=== PATIENT | female | born 1970 | race Caucasian/White ===

== ENCOUNTER → 2016-09-11 11:34 | Outpatient (CLI) | payer BC ==
[2016-09-11 12:24] LABS: HCG SERUM NEGATIVE (NEGATIVE)
== END | disposition home or self-care (01) ==
LOC: D.NM 11:30
PROVIDERS: Internal Medicine Gastroenterology
DX: R13.10 Dysphagia, unspecified (principal); R10.11 Right upper quadrant pain

== ENCOUNTER 2016-10-08 20:34 | Emergency (ER) | payer BC ==
[2016-10-08 22:52] LABS: BASOPHILS 0.2 % (0-2); EOSINOPHILS 0.5 % (0-7); HEMATOCRIT 39.8 % (36.0-48.0); HEMOGLOBIN 13.1 g/dL (12-16); IMMATURE GRANULOCYTES 0.2 % (0-5); LYMPHOCYTES 19.8 % (15-50); MCH 26.7 pg (26.0-34.0); MCHC 32.9 g/dL (31.0-37.0); MCV 81.1 fL (80.0-100.0); MEAN PLATELET VOLUME 10.8 fL (7.4-10.4); MONOCYTES 5.3 % (2-11); PLATELET COUNT 267 10x3/uL (130-400); RBC 4.91 10x6/uL (4.00-5.40); RDW 15.9 % (11.5-14.5); WBC 6.6 10x3/uL (4.8-10.8)
== END 2016-10-09 00:06 | disposition home or self-care (01) ==
LOC: D.ER 20:34
PROVIDERS: Physician Assistant
DX: G89.18 Other acute postprocedural pain (principal); R10.9 Unspecified abdominal pain; I10 Essential (primary) hypertension; E03.9 Hypothyroidism, unspecified

== ENCOUNTER → 2016-11-05 08:34 | Outpatient (CLI) | payer BC ==
[2016-11-05 09:12] LABS: BASOPHILS 0.5 % (0-2); HEMATOCRIT 40.3 % (36.0-48.0); HEMOGLOBIN 13.4 g/dL (12-16); IMMATURE GRANULOCYTES 0.6 % (0-5); LYMPHOCYTES 24.2 % (15-50); MCH 27.2 pg (26.0-34.0); MCHC 33.3 g/dL (31.0-37.0); MCV 81.7 fL (80.0-100.0); MONOCYTES 6.2 % (2-11); NEUTROPHILS 63.5 % (40-80); PLATELET COUNT 247 10x3/uL (130-400); RBC 4.93 10x6/uL (4.00-5.40); RDW 15.1 % (11.5-14.5); WBC 7.9 10x3/uL (4.8-10.8)
[2016-11-05 09:29] LABS: % SATURATION 14 % (15-55); APTT 25.5 SECONDS (22.8-39.4); INR 1.05 (0.85-1.17); IRON 57 ug/dl (35-150); PROTIME 13.5 SECONDS (11.6-15.0); TOTAL IRON BIND CAPACITY 395 ug/dl (260-445); UNSAT IRON BIND CAPACITY 338 ug/dl (150-375)
[2016-11-05 09:43] LABS: ALKALINE PHOSPHATASE 107 U/L (46-116); ALT (SGPT) 133 U/L (10-68); BILIRUBIN - INDIRECT 0.29 mg/dL (0.00-1.00); BILIRUBIN - TOTAL 0.39 mg/dL (0.2-1.3); CALC OSMOLALITY 290 mosm/kg (275-300); CALCIUM 9.1 mg/dL (8.5-10.1); CARBON DIOXIDE 26.8 mmol/L (21.0-32.0); CHLORIDE - SERUM 100 mmol/L (98-107); CHOL - HDL RATIO 7.5 ratio (2.3-4.1); CHOLESTEROL, TOTAL 180 mg/dL (0-200); CREATININE - SERUM 0.8 mg/dL (0.6-1.3); FERRITIN 45 ng/mL (3-244); GAMMA GT 181 U/L (5-85); HDL CHOLESTEROL 24 mg/dL (32-96); LDL CHOLESTEROL 105 mg/dL (0-100); LDL-HDL RATIO 4.4 ratio (1.5-3.5); POTASSIUM - SERUM 3.9 mmol/L (3.5-5.1); SODIUM 140 mmol/L (136-145); TRIGLYCERIDE 259 mg/dL (30-200); UREA NITROGEN 15 mg/dL (7-18); eGFR NON AFRICAN AMERICAN 82 mL/min (90-120)
[2016-11-05 09:45] LABS: GLUCOSE 295 mg/dL (74-106)
[2016-11-06 08:22] LABS: ALPHA FETOPROTEIN -(TUMOR MRK) 5.2 ng/mL (0.0-8.3); FOLATE (FOLIC ACID) - SERUM 12.2 ng/mL (>3.0)
[2016-11-06 09:18] LABS: ANA REFLEX - DIRECT Negative (Negative); HAPTOGLOBIN 193 mg/dL (34-200)
[2016-11-06 10:21] LABS: HEPATITIS C ANTIBODY <0.1 (0.0-0.9)
== END | disposition home or self-care (01) ==
LOC: D.US 08:30
PROVIDERS: Internal Medicine Gastroenterology
DX: K76.0 Fatty (change of) liver, not elsewhere classified (principal)

== ENCOUNTER 2016-11-20 07:39 | Outpatient (CLI) | payer BC ==
[~2016-11-20] VITALS: Ht 162.6 cm; Wt 77.3 kg
[2016-11-20] MEDS ORDERED: OMEPRAZOLE40 MG PO (08:13)
[2016-11-20] MEDS ORDERED: LEVOTHYROXINE150 MCG PO (08:13)
[2016-11-20] MEDS ORDERED: LOPRESSOR25 MG PO (08:14)
[2016-11-20] MEDS ORDERED: REGLAN5 MG PO (08:14)
[2016-11-20 08:24] VITALS: BP 130/85; BMI 29.2
[2016-11-20 08:32] LABS: BASOPHILS 0.3 % (0-2); EOSINOPHILS 3.5 % (0-7); HEMATOCRIT 41.1 % (36.0-48.0); HEMOGLOBIN 13.7 g/dL (12-16); IMMATURE GRANULOCYTES 0.5 % (0-5); LYMPHOCYTES 30.9 % (15-50); MCH 27.1 pg (26.0-34.0); MCHC 33.3 g/dL (31.0-37.0); MCV 81.4 fL (80.0-100.0); MEAN PLATELET VOLUME 11.5 fL (7.4-10.4); MONOCYTES 8.4 % (2-11); NEUTROPHILS 56.4 % (40-80); PLATELET COUNT 247 10x3/uL (130-400); RBC 5.05 10x6/uL (4.00-5.40); RDW 14.2 % (11.5-14.5); WBC 6.1 10x3/uL (4.8-10.8)
[2016-11-20 08:57] LABS: CALC OSMOLALITY 288 mosm/kg (275-300); CALCIUM 9.2 mg/dL (8.5-10.1); CARBON DIOXIDE 24.5 mmol/L (21.0-32.0); CHLORIDE - SERUM 100 mmol/L (98-107); CREATININE - SERUM 0.8 mg/dL (0.6-1.3); POTASSIUM - SERUM 3.8 mmol/L (3.5-5.1); SODIUM 137 mmol/L (136-145); UREA NITROGEN 13 mg/dL (7-18); eGFR NON AFRICAN AMERICAN 82 mL/min (90-120)
[2016-11-20 09:00] LABS: INR 0.98 (0.85-1.17); PROTIME 12.8 SECONDS (11.6-15.0)
[2016-11-20 09:04] LABS: GLUCOSE 361 mg/dL (74-106)
--- NOTE | 2016-11-20 11:08 | NUR ---
1055 SEE POST PROCEDURE VITAL SIGN SHEET FOR VITAL SIGNS 1100 A PHONE CALL MADE TO DR. SONG TO REPORT PAIN RATED 01/[address] COLBERT NURSE ROUNDS 1115 DR. SONG ORDERS RECEIVED FOR PAIN MEDS 1125 PAIN MEDICATIONS GIVEN PER MAR FOR PAIN
--- NOTE | 2016-11-20 14:03 | NUR ---
[address] BY STRETCHER TO CHECK PER RAD REQUEST.
[2016-11-20 14:38] LABS: HEMATOCRIT 39.9 % (36.0-48.0); HEMOGLOBIN 13.3 g/dL (12-16)
--- NOTE | 2016-11-20 14:44 | NUR ---
[address] COLBERT NURSE PHONED, SAID TO REPEAT THE DOSE OF DILAUDID , SAID CT WAS NORMAL. 1440 DILAUDID 0.5 IV GIVEN FOR PAIN 5/10, WATER REFRESHED. DENIES NAUSEA. DRESSING CDI.
--- NOTE | 2016-11-20 16:30 | NUR ---
1615 PT'S MEDICATED WITH HYDRALAZINE 10MG IV FOR BP, CRACKERS AND LEMON KOI SERVED.
--- NOTE | 2016-11-20 16:36 | NUR ---
1630 EATING CRACKERS AND SIPPING ON L[place]ON [place]. BP 136/90.
--- NOTE | 2016-11-20 17:45 | NUR ---
1745 REPORT PHONED TO BETH MACKEY TO [phone] BY CHERYL
[2016-11-20 18:25] VITALS: BP 163/100
--- NOTE | 2016-11-20 18:29 | NUR ---
RECEIVED TO ROOM 2217 FROM OUTPATIENT VIA [facility]. CALL LIGHT IN REACH. AT BEDSIDE. CALL LIGHT IN REACH. WILL CONTINUE WITH PLAN OF CARE.
[2016-11-20 18:32] VITALS: BP 163/100
--- NOTE | 2016-11-20 20:00 | NUR ---
ASSESSMENT PER FLOWSHEET. IV PATENT RT ARM SALINE LOCKED. FAMILY AT BEDSIDE. SR UP X2 CALL LIGHT WITHIN REACH.
--- NOTE | 2016-11-20 21:00 | NUR ---
MEDS GIVEN PO WITH A SIP OF WATER.
--- NOTE | 2016-11-20 21:55 | NUR ---
RECEIVED PATIENT FROM [facility] VIA WHEELCHAIR TO ROOM 1220. INTRODUCED SELF. ORIENTED TO ROOM AND BED CONTROLS. STATUS POST LIVER BIOPSY TODAY WITH INTERENTION RADIOLODY. SALINE LOCK TO R HAND. SPOUSE HERE.
[2016-11-20 22:06] VITALS: BP 134/86
--- NOTE | 2016-11-21 00:30 | NUR ---
EYES CLOSED. LEFT UNDISTURBED.
--- NOTE | 2016-11-21 03:30 | NUR ---
APPEARS TO BE ASLEEP.
--- NOTE | 2016-11-21 05:42 | NUR ---
SLEPT FAIRLY WELL DURING THE NIGHT. CONTINUING PLAN OF CARE.
--- NOTE | 2016-11-21 07:00 | NUR ---
THIS RN AND Suresh HARN TO BEDSIDE FOR BEDSIDE REPORT. PT CURRENTLY RESTING QUIETLY W/EYES CLOSED. RESP EVEN. PT LEFT UNDISTURBED AT THISTIME.
--- NOTE | 2016-11-21 07:30 | NUR ---
BREAKFAST TRAY SERVED.
[2016-11-21 08:45] VITALS: BP 133/95
--- NOTE | 2016-11-21 08:45 | NUR ---
THIS RN TO BEDSIDE FOR SHIFT ASSESSMENT. PT AA&O X 4 SITTING UP IN BED. PT W/COLD TOWEL ON HER HEAD. REPORTS FEELING HOT. PT'S FACE IS FLUSH, SKIN WARM, BUT DRY. PT REPORTS SHE FEELS LIKE IT MAY BE CAUSED BY THE PAIN MEDICATION THAT WAS GIVEN. PT DENIES PAIN AT PRESENT. SHIFT ASSESSMENT COMPLETED. SEE FLOWSHEET FOR CHARTING. PT HAS BREAKFAST TRAY WITH DRINKS, BUT REQUEST ICE CHIPS. ICE CHIPS SERVED. NO FURTHER NEEDS VOICED AT THISTIME.
--- NOTE | 2016-11-21 08:55 | NUR ---
DR ACOSTA NURSE TO ROOM TO SEE PT AT THIS TIME. GIVES DISCHARGE ORDER.
[2016-11-21 09:32] VITALS: Ht 162.6 cm; Wt 77.3 kg
--- NOTE | 2016-11-21 10:03 | NUR ---
THIS RN TO BEDSIDE FOR DISCHARGE TEACHING. PT PROVIDED W/DISCHARGE PAPERS, DI INSTRUCTIONS AFTER LIVER BIOPSY. DISCHARGE PAPERS SIGNED. PT DENIES QUESTIONS AT THIS TIME. PT INFORMED SHE WILL NEED TO CALL DR ACOSTA' OFFICE IN 7-10 DAYS TO FIND OUT RESULTS OF BIOPSY. NO PRESCRIPTIONS WRITTEN TO BE SENT HOME WITH PT.
--- NOTE | 2016-11-21 10:07 | NUR ---
PT DISCHARGED HOME. TRANSPORTED VIA W/C OFF UNIT PER VOLUNTEER.
--- NOTE | 2016-11-21 10:15 | NUR ---
SALINE LOCK DISCONTINUED. SITE WNL W/OUT REDNESS OR SWELLING. BANDAID PLACED OVER SITE.
--- NOTE | 2016-11-21 10:30 | NUR ---
PT DISCHARGED HOME. TRANSPORTED OFF UNIT VIA W/C PER VOLUNTEER.
== END 2016-11-21 10:30 | disposition home or self-care (01) ==
LOC: D.OPS 07:39 → D.SP 10:00 → D.MS 17:48 → D.WS 21:45 → D.OPS 11-21 10:30
PROVIDERS: Specialist
DX: K75.81 Nonalcoholic steatohepatitis (NASH) (principal); G89.18 Other acute postprocedural pain; Z88.2 Allergy status to sulfonamides; Z01.812 Encounter for preprocedural laboratory examination

== ENCOUNTER 2016-12-17 11:44 | Emergency (ER) | payer BC ==
[2016-11-21 09:32] VITALS: BMI 29.2
[~2016-12-17 11:44] MED LIST: LEVOTHYROXINE150 MCG PO; LOPRESSOR25 MG PO; OMEPRAZOLE40 MG PO; REGLAN5 MG PO
[2016-12-17 12:48] LABS: BASOPHILS 0.4 % (0-2); EOSINOPHILS 1.9 % (0-7); HEMOGLOBIN 13.5 g/dL (12-16); IMMATURE GRANULOCYTES 0.4 % (0-5); LYMPHOCYTES 29.2 % (15-50); MCH 27.4 pg (26.0-34.0); MCHC 33.8 g/dL (31.0-37.0); MCV 81.1 fL (80.0-100.0); MEAN PLATELET VOLUME 11.6 fL (7.4-10.4); MONOCYTES 7.6 % (2-11); NEUTROPHILS 60.5 % (40-80); PLATELET COUNT 205 10x3/uL (130-400); RBC 4.93 10x6/uL (4.00-5.40); RDW 13.8 % (11.5-14.5); WBC 5.7 10x3/uL (4.8-10.8)
[2016-12-17 12:58] LABS: ALBUMIN 3.7 g/dL (3.4-5.0); ANION GAP 16.9 mmol/L (8-16); BILIRUBIN - TOTAL 0.39 mg/dL (0.2-1.3); CALCIUM 9.6 mg/dL (8.5-10.1); CARBON DIOXIDE 22.4 mmol/L (21.0-32.0); CREATININE - SERUM 1.1 mg/dL (0.6-1.3); POTASSIUM - SERUM 4.3 mmol/L (3.5-5.1); PROTEIN - SERUM 7.4 g/dL (6.4-8.2)
[2016-12-17 13:03] LABS: HEMOGLOBIN A1C 11.6 % (4.8-6.0)
[2016-12-17 13:41] LABS: APPEARANCE CLEAR (CLEAR); BILIRUBIN NEGATIVE (NEGATIVE); COLOR YELLOW (YELLOW); GLUCOSE 500 mg/dL (NEGATIVE); KETONE MODERATE mg/dL (NEGATIVE); LEUKOCYTE ESTERASE NEGATIVE (NEGATIVE); NITRITE NEGATIVE (NEGATIVE); PROTEIN NEGATIVE (NEGATIVE); SPECIFIC GRAVITY 1.015 (1.005-1.020); UROBILINOGEN NORMAL (NORMAL)
[2016-12-17 13:43] LABS: HCG URINE NEGATIVE (NEGATIVE)
== END 2016-12-17 14:23 | disposition home or self-care (01) ==
LOC: D.ER 11:44
PROVIDERS: Emergency Medicine
DX: E11.65 Type 2 diabetes mellitus with hyperglycemia (principal); I10 Essential (primary) hypertension; E03.9 Hypothyroidism, unspecified

== ENCOUNTER → 2017-01-15 17:24 | Outpatient (CLI) | payer BC ==
[2016-11-21 09:32] VITALS: BMI 29.2
== END | disposition home or self-care (01) ==
LOC: D.MAMMO 15:45
DX: Z12.31 Encounter for screening mammogram for malignant neoplasm of breast (principal)

== ENCOUNTER → 2017-03-26 09:05 | Outpatient (CLI) | payer BC ==
[2016-11-21 09:32] VITALS: BMI 29.2
== END | disposition home or self-care (01) ==
LOC: D.RAD 03-19 09:30
DX: R13.10 Dysphagia, unspecified (principal)

== ENCOUNTER → 2017-05-27 08:11 | Outpatient (CLI) | payer BC ==
[2016-11-21 09:32] VITALS: BMI 29.2
[2017-05-27 08:43] LABS: BILIRUBIN - DIRECT 0.12 mg/dL (0.00-0.30); BILIRUBIN - INDIRECT 0.34 mg/dL (0.00-1.00); BILIRUBIN - TOTAL 0.46 mg/dL (0.2-1.3); PROTEIN - SERUM 7.8 g/dL (6.4-8.2)
== END | disposition home or self-care (01) ==
LOC: D.OPS 08:11 → D.LAB 08:15 → D.US 08:30
PROVIDERS: Internal Medicine Gastroenterology
DX: R13.10 Dysphagia, unspecified (principal); K76.0 Fatty (change of) liver, not elsewhere classified

== ENCOUNTER 2017-12-11 11:04 | Emergency (ER) | payer OTHER ==
[~2017-12-11] VITALS: Ht 162.6 cm; Wt 72.7 kg
[2017-12-11 11:07] VITALS: Ht 162.6 cm; Wt 72.7 kg
[2017-12-11] MEDS ORDERED: GLUCOPHAGE500 MG PO (11:10)
[2017-12-11] MEDS ORDERED: LISINOPRIL5 MG PO (11:11)
[2017-12-11 11:35] LABS: BASOPHILS 0.4 % (0-2); EOSINOPHILS 2.3 % (0-7); HEMATOCRIT 44.9 % (36.0-48.0); HEMOGLOBIN 15.2 g/dL (12-16); IMMATURE GRANULOCYTES 0.4 % (0-5); LYMPHOCYTES 34.1 % (15-50); MCH 29.8 pg (26.0-34.0); MCHC 33.9 g/dL (31.0-37.0); MEAN PLATELET VOLUME 11.5 fL (7.4-10.4); MONOCYTES 5.9 % (2-11); NEUTROPHILS 56.9 % (40-80); PLATELET COUNT 242 10x3/uL (130-400); WBC 7.2 10x3/uL (4.8-10.8)
[2017-12-11 11:50] LABS: ALBUMIN 4.2 g/dL (3.4-5.0); ALKALINE PHOSPHATASE 148 U/L (46-116); ALT (SGPT) 122 U/L (10-68); BILIRUBIN - TOTAL 0.52 mg/dL (0.2-1.3); CALC OSMOLALITY 288 mosm/kg (275-300); CALCIUM 9.4 mg/dL (8.5-10.1); CARBON DIOXIDE 27.9 mmol/L (21.0-32.0); CHLORIDE - SERUM 97 mmol/L (98-107); CREATININE - SERUM 0.8 mg/dL (0.6-1.3); POTASSIUM - SERUM 4.1 mmol/L (3.5-5.1); PROTEIN - SERUM 8.1 g/dL (6.4-8.2); SODIUM 135 mmol/L (136-145); UREA NITROGEN 12 mg/dL (7-18); eGFR NON AFRICAN AMERICAN 81 mL/min (90-120)
[2017-12-11 11:53] LABS: GLUCOSE 438 mg/dL (74-106)
[2017-12-11 12:08] LABS: KETONE - SERUM NEGATIVE (NEGATIVE)
[2017-12-11 12:18] LABS: AMYLASE - SERUM 76 U/L (25-115); LIPASE 314 U/L (73-393); TROPONIN-I < 0.017 ng/mL (0.000-0.060)
[2017-12-11 12:19] LABS: THYROID STIMULATING HORMONE 51.94 uIU/mL (0.36-3.74)
[2017-12-11 13:09] LABS: APPEARANCE CLEAR (CLEAR); BILIRUBIN NEGATIVE (NEGATIVE); COLOR YELLOW (YELLOW); GLUCOSE 1000 mg/dL (NEGATIVE); KETONE MODERATE mg/dL (NEGATIVE); NITRITE NEGATIVE (NEGATIVE); PROTEIN NEGATIVE (NEGATIVE); UROBILINOGEN NORMAL (NORMAL)
[2017-12-11] MEDS ORDERED: ZOFRAN4 MG PO (14:20)
[2017-12-11] MEDS ORDERED: MIRALAX527 GM PO (14:20)
[2017-12-11 15:14] VITALS: BP 136/94
== END 2017-12-11 14:41 | disposition home or self-care (01) ==
LOC: D.ER 11:04
PROVIDERS: Family Medicine
DX: K59.00 Constipation, unspecified (principal); R10.9 Unspecified abdominal pain; E11.9 Type 2 diabetes mellitus without complications; K76.9 Liver disease, unspecified

== ENCOUNTER → 2019-03-23 08:00 | Outpatient (CLI) | payer BC ==
[2017-12-11 11:07] VITALS: BMI 27.5
[~2019-03-23 08:00] MED LIST changes: +GLUCOPHAGE500 MG PO; +LISINOPRIL5 MG PO; +MIRALAX527 GM PO; +ZOFRAN4 MG PO
== END | disposition home or self-care (01) ==
LOC: D.MAMMO 08:00
PROVIDERS: ATTEND Nurse Practitioner
DX: Z12.31 Encounter for screening mammogram for malignant neoplasm of breast (principal)

== ENCOUNTER 2019-04-28 09:00 | Outpatient (CLI) | payer MEDICAID ==
[2017-12-11 11:07] VITALS: BMI 27.5
== END 2019-04-28 10:00 | disposition home or self-care (01) ==
LOC: D.MAMMO 09:00
PROVIDERS: ATTEND Nurse Practitioner
DX: R92.8 Other abnormal and inconclusive findings on diagnostic imaging of breast (principal)

== ENCOUNTER 2019-05-06 09:00 | Outpatient (CLI) | payer MEDICAID ==
[2017-12-11 11:07] VITALS: BMI 27.5
== END 2019-05-06 10:00 | disposition home or self-care (01) ==
LOC: D.MAMMO 09:00
PROVIDERS: ATTEND Nurse Practitioner
DX: R92.1 Mammographic calcification found on diagnostic imaging of breast (principal)

== ENCOUNTER → 2019-07-06 20:41 | Outpatient (CLI) | payer MEDICAID ==
[2017-12-11 11:07] VITALS: BMI 27.5
== END | disposition home or self-care (01) ==
LOC: D.MAMMO 09:30
PROVIDERS: ATTEND Nurse Practitioner
DX: R92.1 Mammographic calcification found on diagnostic imaging of breast (principal)

== ENCOUNTER → 2019-07-12 14:54 | Outpatient (CLI) | payer MEDICAID ==
[2017-12-11 11:07] VITALS: BMI 27.5
== END | disposition home or self-care (01) ==
LOC: D.US 14:54
PROVIDERS: ATTEND Nurse Practitioner
DX: M79.604 Pain in right leg (principal)